=== PATIENT | male | born 1990 | race Caucasian/White ===

== ENCOUNTER 2019-04-14 05:37 | Emergency (ER) | payer SELFPAY ==
--- NOTE | 2019-04-14 05:57 | PDOC ---
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 He reports that the pain is 6/10, localized to the lower back, described as squeezing, intermittent. He reports that the pain is entirely alleviated by advil and acetaminophen, but reports presenting due to concern that he had been taking the advil for three days consecutively. He expresses concern that the pain may represent a kidney or lung pathology secondary to his regular hookah smoking. He denies any urinary symptoms, complaints, or increased frequency. 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 He also reports subjective fevers relieved by the advil and acetaminophen, but has not taken his temperature at home. Past History - Past Medical History Allergies/Adverse Reactions: Allergies Allergy/AdvReac Type Severity Reaction Status Date / Time No Known Allergies Allergy Verified 04/14/19 06:02 Home Medications: Ambulatory Orders NK [No Known Home Medication] 04/14/19 Review of Systems - Review of Systems Able to Perform ROS?: Yes Comments:: 04/14/19 06:34 ROS: GENERAL/CONSTITUTIONAL: No fever or chills. No weakness. HEAD, EYES, EARS, NOSE AND THROAT: No change in vision. No ear pain or discharge. No sore throat. CARDIOVASCULAR: No chest pain or shortness of breath RESPIRATORY: No cough, wheezing, or hemoptysis. GASTROINTESTINAL: No nausea, vomiting, diarrhea or constipation. GENITOURINARY: No dysuria, frequency, or change in urination. MUSCULOSKELETAL: No joint or muscle swelling or pain. No neck or back pain. SKIN: No rash NEUROLOGIC: No headache, vertigo, loss of consciousness, or change in strength/ sensation. ENDOCRINE: No increased thirst. No abnormal weight change HEMATOLOGIC/LYMPHATIC: No anemia, easy bleeding, or history of blood clots. ALLERGIC/IMMUNOLOGIC: No hives or skin allergy. *Physical Exam - Physical Exam Comments: 04/14/19 06:32 PE: GENERAL: Awake, alert, and fully oriented, in no acute distress HEAD: No signs of trauma, normocephalic, atraumatic EYES: PERRLA, EOMI, sclera anicteric, conjunctiva clear ENT: Auricles normal inspection, hearing grossly normal, nares patent, oropharynx clear without exudates. Moist mucosa NECK: Normal ROM, supple, no lymphadenopathy, JVD, or masses LUNGS: No distress, speaks full sentences, clear to auscultation bilaterally HEART: Regular rate and rhythm, normal S1 and S2, no murmurs, rubs or gallops, peripheral pulses normal and equal bilaterally. ABDOMEN: Soft, nontender, normoactive bowel sounds. No guarding, no rebound. No masses EXTREMITIES : Normal inspection, Normal range of motion, no edema. No clubbing or cyanosis. NEUROLOGICAL: Cranial nerves II through XII grossly intact. Normal speech, normal gait, no focal sensorimotor deficits BACK: Paraspinal lower back tenderness, mild. No midline pain, no step-offs. SKIN: Warm, Dry, normal turgor, no rashes or lesions noted Medical Decision Making - Medical Decision Making 04/14/19 06:37 29 y/o M with hx GERD p/w long-term intermittent paraspinal low back pain, heavy lifting at work, with no neurologic signs, trauma, or red flag signs, most consistent with msk low back pain. Plan: - kristy Maradiaga for pain - X ray L spine - UA Dispo: - Likely home pending imaging 04/14/19 06:42 Patient reporting t-spine tenderness in addition to L-spine tenderness. T-spine xray ordered as well. 04/14/19 07:04 Patient signed out to Dr. Dutton during shift change. *DC/Admit/Observation/Transfer Diagnosis at time of Disposition: Low back pain Qualifiers: Chronicity: chronic Back pain laterality: bilateral Sciatica presence: without sciatica Qualified Code(s): M54.5 - Low back pain - Discharge Dispostion Disposition: HOME Condition at time of disposition: Stable Decision to Admit order: No - Referrals - Patient Instructions Printed Discharge Instructions: DI for Low Back Pain Additional Instructions: Usted fue evaluado en la domi de urgencias para evaluacion de price dolor de espalda. Tomamos hanh-X de price espalda, y estaban normales. Por favor ve a price doctor de cabezera la semana que viene. Regresa a la domi de urgencias si empiezas a tener fiebre brigido, cambio de sensasion en kevin piernas, o incontinencia de orine. Print Language: [place] - Post Discharge Activity
--- NOTE | 2019-04-14 05:58 | PDOC ---
Attending Attestation - Resident Resident Name: Jonas Grigsby - ED Attending Attestation I have performed the following: I have examined & evaluated the patient, The case was reviewed & discussed with the resident, I agree w/resident's findings & plan - HPI HPI: 04/14/19 06:32 Pt lifts for a living; injured back at work. Now here with back pain. Low back pain. - Physicial Exam PE: 04/14/19 06:33 Agree with resident exam - Medical Decision Making 04/14/19 06:33 XRAYS ordered and pt will be signed out to the day ER docs. 04/14/19 06:42 T spine and L spine XRAYS. UA will be cecked because pt is worried about his kidneys. Pt states that he smokes too much hookah and he is worried about his lungs. Lungs clear to auscutation; I told pt to quit hookah if he is worried. 04/14/19 07:02 UA normal.
[2019-04-14 06:01] VITALS: TEMP 98.8; BMI 26.9
[2019-04-14] MEDS ORDERED: IBUPROFEN 600 MG TABLET (FP) PO ONE ×2 (06:33→06:46)
[2019-04-14] MEDS ORDERED: METHOCARBAMOL 500 MG TABLET PO ONE (06:33)
[2019-04-14] MEDS ORDERED: METHOCARBAMOL 500 MG TABLET ONE (06:46)
[2019-04-14 06:58] LABS: URINE APPEARANCE Clear; URINE BILIRUBIN Negative (NEGATIVE); URINE COLOR Yellow; URINE GLUCOSE (UA) Negative (NEGATIVE); URINE KETONE Negative (NEGATIVE); URINE LEUK ESTERASE Negative (NEGATIVE); URINE NITRITE Negative (NEGATIVE); URINE PROTEIN Negative (NEGATIVE)
--- NOTE | 2019-04-14 07:15 | PDOC ---
*Physical Exam - Vital Signs Last Vital Signs Temp Pulse Resp BP Pulse Ox 98.8 F 61 15 124/59 L 100 04/14/19 05:37 04/14/19 05:37 04/14/19 05:37 04/14/19 05:37 04/14/19 05:37 - Physical Exam Comments: GENERAL: Awake, alert, and oriented to person/place/time, in no acute distress HEAD: No signs of trauma, normocephalic, atraumatic EYES: PERRLA, EOMI, sclera anicteric, conjunctiva clear ENT: Hearing grossly normal, nares patent, oropharynx clear without exudates. Moist mucosa EXTREMITIES: Normal inspection, Normal range of motion, no edema. No clubbing or cyanosis NEUROLOGICAL: Normal speech, normal gait, no focal sensorimotor deficits SKIN: Warm, Dry 04/14/19 08:33 ED Treatment Course - ADDITIONAL ORDERS Additional order review: Laboratory Results 04/14/19 06:16 Urine Color Yellow Urine Appearance Clear Urine pH 7.0 Ur Specific [place] 1.020 Urine Protein Negative Urine Glucose (UA) Negative Urine Ketones Negative Urine Blood Negative Urine Nitrite Negative Urine Bilirubin Negative Urine Urobilinogen 1.0 Ur Leukocyte Esterase Negative - Medications Given in the ED: ED Medications Discontinued Medications Generic Name Dose Route Start Last Admin Trade Name Freq PRN Reason Stop Dose Admin Ibuprofen 600 mg 04/14/19 06:33 04/14/19 06:49 Motrin - PO 04/14/19 06:34 600 mg ONCE ONE Administration Methocarbamol 1,000 mg 04/14/19 06:33 04/14/19 06:50 Robaxin - PO 04/14/19 06:34 1,000 mg ONCE ONE Administration Medical Decision Making - Medical Decision Making The pt is a 29M w/ no reported PMH who presented for back pain UA w/o evidence of UTI or nephrolithiasis T and L spine XR pending Pt reports feeling improved s/p meds and is ambulating in ED Pt counseled on alternating Tylenol and Advil, lifting techniques, heating pads , and rest. 04/14/19 08:34 XR w/o acute pathology Plan for D/C w/ PCP f/u Discharge instructions and return precautions given Pt in agreement and verbalized understanding Dispo: home 04/14/19 09:06 *DC/Admit/Observation/Transfer Diagnosis at time of Disposition: Low back pain Qualifiers: Chronicity: chronic Back pain laterality: bilateral Sciatica presence: without sciatica Qualified Code(s): M54.5 - Low back pain - Discharge Dispostion Disposition: HOME Condition at time of disposition: Stable Decision to Admit order: No - Referrals Referrals: [facility] [place] [facility] [Provider Group] - Patient Instructions Printed Discharge Instructions: DI for Low Back Pain Additional Instructions: Usted fue evaluado en la domi de urgencias para evaluacion de price dolor de espalda. Tomamos hanh-X de price espalda, y estaban normales. Por favor ve a price doctor de cabezera la semana que viene. Regresa a la domi de urgencias si empiezas a tener fiebre brigido, cambio de sensasion en kevin piernas, o incontinencia de orine. Print Language: [place] - Post Discharge Activity
[2019-04-14 09:10] VITALS: BP 111/76; PULSE 64
== END 2019-04-14 09:08 | disposition home or self-care (01) ==
LOC: JER 05:37
DX: M54.5 Low back pain (principal); K21.9 Gastro-esophageal reflux disease without esophagitis
CPT/HCPCS: 72070-TC-FY; 72100-TC-FY; 81003; 99282-25

== ENCOUNTER 2019-10-03 18:24 | Emergency (ER) | payer BC ==
[2019-10-03] MEDS ORDERED: ACETAMINOPHEN 500 MG TABLET (FP) PO ONE (18:28)
--- NOTE | 2019-10-03 18:30 | PDOC ---
Rapid Medical Evaluation Chief Complaint: Cold Symptoms Time Seen by Provider: 10/03/19 18:27 Medical Evaluation: Allergies Allergy/AdvReac Type Severity Reaction Status Date / Time No Known Allergies Allergy Verified 04/14/19 06:02 10/03/19 18:27 10/03/19 18:25 29 year old male cough, fever x 4 days. denies throat pain, sisters' kids were sick as per patient/ no flu vaccine this season A: viral illness P; tylenol [id number] xray Discharge Disposition - Diagnosis Viral respiratory illness - Referrals - Patient Instructions - Post Discharge Activity
[2019-10-03 18:31] VITALS: BP 137/78; PULSE 91; TEMP 102.1; BMI 26.4
[2019-10-03] MEDS ORDERED: ACETAMINOPHEN 500 MG TABLET (FP) ONE (18:47)
--- NOTE | 2019-10-03 19:34 | PDOC ---
History of Present Illness - General Chief Complaint: Cold Symptoms Stated Complaint: FEVER Time Seen by Provider: 10/03/19 18:27 History Source: Patient Exam Limitations: No Limitations - History of Present Illness Initial Comments: 10/03/19 19:27 28-year-old male denies past medical history presents with dry cough, nasal congestion, body aches, intermittent fever and chills x4 days. 5-6 days ago patient spent time with family members who had viral illnesses. Denies recent travel, rash, chest pain, shortness of breath, abdominal pain, vomiting, diarrhea or any other symptoms. Has not taken any pain medication. ROS: GENERAL/CONSTITUTIONAL: fever, chills, denies weakness, dizziness HEAD, EYES, EARS, NOSE AND THROAT: Nasal congestion, no changes in vision, No ear pain or discharge, No sore throat CARDIOVASCULAR: No chest pain RESPIRATORY: Dry cough GASTROINTESTINAL: No pain, nausea, vomiting, diarrhea or constipation GENITOURINARY: No dysuria MUSCULOSKELETAL: No neck or back pain SKIN: No rash NEUROLOGIC: No headache, vertigo, loss of consciousness, or loss of sensation PE: GENERAL: well-appearing, NAD HEAD: NCAT EYES: Pupils equal, round and reactive to light, sclera anicteric, conjunctiva clear ENT: Normal bilateral ear canals, normal bilateral TM's, pharynx: no erythema, no exudate, uvula midline NECK: supple, no lymphadenopathy CHEST: nontender RESP: clear, no w/r/r CARDIO: rrr, no m/g/r ABD: +BS, soft, nontender, non distended BACK: no midline spinal ttp, no CVAT EXTREMITIES: Normal range of motion, no edema NEUROLOGICAL: Normal speech, normal gait SKIN: Warm, Dry Is this a multiple visit Asthma Patient?: No Past History - Past Medical History Allergies/Adverse Reactions: Allergies Allergy/AdvReac Type Severity Reaction Status Date / Time No Known Allergies Allergy Verified 10/03/19 18:30 Home Medications: Ambulatory Orders NK [No Known Home Medication] 04/14/19 COPD: No - Immunization History Td Vaccination: Yes TDAP Vaccination: Yes Immunization Up to Date: Yes - Psycho Social/Smoking Cessation Hx Smoking History: Never smoked Have you smoked in the past 12 months: No Information on smoking cessation initiated: No Hx Alcohol Use: No Drug/Substance Use Hx: No *Physical Exam - Vital Signs Last Vital Signs Temp Pulse Resp BP Pulse Ox 102.1 F H 91 H 18 137/78 96 10/03/19 18:28 10/03/19 18:28 10/03/19 18:28 10/03/19 18:28 10/03/19 18:28 ED Treatment Course - Medications Given in the ED: ED Medications Discontinued Medications Generic Name Dose Route Start Last Admin Trade Name Eduarda PRN Reason Stop Dose Admin Acetaminophen 1,000 mg 10/03/19 18:28 10/03/19 18:46 Tylenol - PO 10/03/19 18:29 1,000 mg ONCE ONE Administration Medical Decision Making - Medical Decision Making 10/03/19 19:29 28-year-old male denies past medical history presents with nasal congestion, dry cough, subjective fever and chills x4 days. Positive sick contacts approximately 1 week ago. Chest x-ray negative Normal exam P.o. Tylenol given for temp of 102 Well-appearing Stable for discharge Advised to follow-up with PMD next week Strict return precautions given Note for work provided Discharge - Discharge Information Problems reviewed: Yes Clinical Impression/Diagnosis: Viral respiratory illness Condition: Stable Disposition: HOME - Admission No - Follow up/Referral Referrals: ON STAFF,NOT [Primary Care Provider] - - Patient Discharge Instructions - Post Discharge Activity Work/Back to School Note: Back to Work
== END 2019-10-03 19:35 | disposition home or self-care (01) ==
LOC: JER 18:24 → JERFT 18:24
DX: J06.9 Acute upper respiratory infection, unspecified (principal); B97.89 Other viral agents as the cause of diseases classified elsewhere
CPT/HCPCS: 71046-TC-FY; 99281-25